=== PATIENT | female | born 2000 | race Caucasian/White ===

== ENCOUNTER → 2021-08-21 | Outpatient (CLI) | payer BC, OTHER ==
--- NOTE | 2021-08-23 13:55 | Diagnostic Imaging Report ---
INDICATION: Scoliosis, back pain. EXAMINATION: Scoliosis series, 08/23/2021. FINDINGS: There are six lumbar-type vertebral bodies with L6 partially sacralized. The right aspect of the L6 vertebral body demonstrates partial sacralization of the right transverse process. There is a dextroconvex scoliosis of the lumbar spine. Measured from the inferior endplate of what is labeled L5 to the superior endplate of L1, this measures 15 degrees. There are no vertebral body anomalies. On the lateral views, there is normal height and alignment of the vertebral bodies. No compression deformity is appreciated. IMPRESSION: 1. 15 degree dextroconvex scoliosis of the lumbar spine with other findings as described above. Dictated by: Dictated on workstation # [id number]
== END ==
LOC: RAD 16:41
PROVIDERS: ATTEND Nurse Practitioner Family
DX: M41.86 Other forms of scoliosis, lumbar region (principal)
CPT/HCPCS: 72082

== ENCOUNTER 2023-03-13 | Emergency (ER) | payer BC ==
--- NOTE | 2023-03-13 01:33 | ED General ---
General Chief Complaint: General Problems/Pain Stated Complaint: ARMS/FACE NUMBNESS Source of Information: Patient History of Present Illness Date Seen by Provider: Mar 13, 2023 Time Seen by Provider: 01:20 Allergies and Home Medications Allergies Coded Allergies: No Known Drug Allergies (Unverified , 03/13/23) Past [id number] Hx Patient Social History Tobacco Use?: No Substance use?: No Alcohol Use?: Yes Alcohol Frequency: Once in a while Immunizations Up To Date Influenza Vaccine Up-to-Date: No; Not Current COVID19 Vaccine [employer]: 3 VACCINES Physical Exam Vital Signs Capillary Refill : Height, Weight, BMI Height: '" Weight: lbs. oz. kg; BMI Method: Progress/Results/Core Measures Suspected Sepsis SIRS Temperature: Pulse: Respiratory Rate: Blood Pressure / Mean: Results/Orders Vital Signs/I&O Capillary Refill : Departure Impression Primary Impression: Anxiety hyperventilation Disposition: 01 HOME, SELF-CARE Condition: Stable Departure-Patient Inst. Decision time for Depature: 01:32 Referrals: JUAN PARSONS MD Patient Instructions: Anxiety, Adult (DC), Hyperventilation Add. Discharge Instructions: HOME, REST TAKE YOUR REGULAR MEDICATION PRESCRIBED FOLLOW UP WITH [facility] THIS WEEK FOR FURTHER CARE--CALL THIS MORNING TO SCHEDULE AN APPOINTMENT All discharge instructions reviewed with patient and/or family. Voiced understanding. RENATO PEREZ DO Mar 13, 2023 01:33
[2023-03-13 01:43] VITALS: BP 146/96
[2023-03-13] MEDS ORDERED: hydrOXYzine (VISTARIL/ATARAX) 25 MG capsule/tablet PO ONE (01:45)
== END 2023-03-13 01:43 | disposition home or self-care (01) ==
LOC: EDUNIT# → ER 00:02
DX: F41.9 Anxiety disorder, unspecified (principal)
CPT/HCPCS: 99283